=== PATIENT | male | born 1930 ===

== ENCOUNTER 2018-01-26 16:49 | Inpatient (IN) | payer MEDICARE ==
[2018-01-26] MEDS ORDERED: BISACODYL 10 MG SUPP PR (17:30)
[2018-01-26] MEDS ORDERED: PENDING SANTYL ORDER FOR WOUND CARE XX (17:30)
[2018-01-26] MEDS ORDERED: LACTULOSE 30ML CUP PO (17:30)
[2018-01-26] MEDS ORDERED: MAGNESIUM HYDROXIDE 30ML CUP PO (17:30)
[2018-01-26] MEDS ORDERED: METOCLOPRAMIDE 5 MG TAB PO (19:30)
[2018-01-26] MEDS ORDERED: ALBUTEROL HFA 8 GM INHALER INH (20:00)
[2018-01-26] MEDS: ALBUTEROL/IPRATROPIUM (NEB) 3 ML AMP HHN (20:47)
[2018-01-26] MEDS: DOCUSATE SODIUM 100 MG CAP PO (21:00)
[2018-01-26] MEDS: SENNA TAB PO (21:00)
[2018-01-26] MEDS: POLYETHYLENE GLYCOL 17 GM PACKET PO (21:00)
[2018-01-26] MEDS: ATORVASTATIN 10 MG TAB PO (21:53)
[2018-01-26] MEDS: BRIMONIDINE 0.2%-TIMOLOL 0.5% 5ML OPH BOTH EYES (21:53)
[2018-01-26] MEDS: HYDROCODONE/APAP (5/325) TAB PO (21:54)
[2018-01-26] MEDS: FEBUXOSTAT 40 MG TABLET PO (23:06)
[2018-01-26] MEDS: DOCOSANOL 2 GM CREAM TOP (23:08)
[2018-01-26 23:28] LABS: HEPATITIS B SURFACE ANTIGEN NEGATIVE (NEGATIVE)
[2018-01-26 23:30] LABS: ADD UMIC YES; UR ASCORBIC ACID NEGATIVE (NEGATIVE); UR BACTERIA FEW /HPF (NONE SEEN); UR BILIRUBIN (Dip) NEGATIVE (NEGATIVE); UR BLOOD (Dip) 1+ mg/dL (NEGATIVE); UR CLARITY CLEAR (CLEAR); UR COLOR YELLOW (YELLOW); UR GLUCOSE (Dip) 2+ mg/dL (NEGATIVE); UR KETONES (Dip) NEGATIVE (NEGATIVE); UR LEUKOCYTE ESTERASE (Dip) NEGATIVE Leu/ul (NEGATIVE); UR NITRITE (Dip) NEGATIVE (NEGATIVE); UR RBC 0 /HPF (0-5); UR SPECIFIC GRAVITY (Dip) 1.006 (1.003-1.030); UR TOTAL PROTEIN (Dip) 1+ mg/dl (NEGATIVE); UR UROBILINOGEN (Dip) NEGATIVE (NEGATIVE); UR WBC 0 /HPF (0-5)
[2018-01-27 01:48] LABS: HEPATITIS B SURFACE ANTIBODY INDETERMINATE (NEGATIVE)
[2018-01-27] MEDS: ALBUTEROL/IPRATROPIUM (NEB) 3 ML AMP HHN ×4 (01:48→20:00)
[2018-01-27] MEDS: PANTOPRAZOLE (EC) 40 MG TAB PO ×2 (05:45→17:31)
[2018-01-27] MEDS: LEVOTHYROXINE 112 MCG TAB PO (05:45)
[2018-01-27] MEDS ORDERED: LEVOTHYROXINE 125 MCG TAB PO (06:00)
[2018-01-27 06:39] LABS: ADD MAN DIFF? NO
[2018-01-27 06:56] LABS: WHITE BLOOD COUNT 7.4 10^3/ul (4.8-10.8)
[2018-01-27 06:56] LABS: BASOPHIL # 0.1 10^3/ul (0.0-0.1); BASOPHILS % 0.7 % (0.0-2.0); EOSINOPHILS # 0.1 10^3/ul (0.0-0.5); EOSINOPHILS % 1.8 % (0.0-7.0); HEMATOCRIT 33.1 % (42.0-52.0); HEMOGLOBIN 10.6 g/dl (14.0-18.0); LYMPHOCYTES # 1.6 10^3/ul (0.8-2.9); LYMPHOCYTES % 21.3 % (15.0-51.0); MEAN CORPUSCULAR HEMOGLOBIN 31.3 pg (29.0-33.0); MEAN CORPUSCULAR VOLUME 97.6 fl (82.0-101.0); MEAN PLATELET VOLUME 9.8 fl (7.4-10.4); MONOCYTES % 13.3 % (0.0-11.0); NEUTROPHIL # 4.6 10^3/ul (1.6-7.5); NEUTROPHILS % 61.8 % (39.0-77.0); PLATELET COUNT 354 10^3/UL (140-415); RED BLOOD COUNT 3.39 10^6/ul (4.70-6.10); RED CELL DISTRIBUTION WIDTH 15.7 % (11.5-14.5)
[2018-01-27 07:14] LABS: ALANINE AMINOTRANSFERASE 19 IU/L (13-69); ALBUMIN 3.5 g/dl (3.3-4.9); ALKALINE PHOSPHATASE 84 IU/L (42-121); ANION GAP 14 (5-13); ASPARTATE AMINO TRANSFERASE 46 IU/L (15-46); BILIRUBIN,INDIRECT 0.3 mg/dl (0-1.1); BILIRUBIN,TOTAL 0.3 mg/dl (0.2-1.3); BLOOD UREA NITROGEN 63 mg/dl (7-20); CALCIUM 9.9 mg/dl (8.4-10.2); CARBON DIOXIDE 26 mmol/L (21-31); CHLORIDE 91 mmol/L (97-110); CREATININE 6.26 mg/dl (0.61-1.24); GLUCOSE 210 mg/dl (70-220); SODIUM 131 mmol/L (135-144)
[2018-01-27 07:16] LABS: POTASSIUM 3.8 mmol/L (3.5-5.1)
[2018-01-27] MEDS ORDERED: GLUCOSE GEL 15 GRAM TUBE PO ×2 (08:30)
[2018-01-27] MEDS ORDERED: DEXTROSE 50% 50 ML SYRINGE IV ×2 (08:30)
[2018-01-27] MEDS ORDERED: GLUCAGON 1 MG INJ IM (08:30)
[2018-01-27] MEDS ORDERED: GLUCOSE GEL 15 GRAM TUBE BUCCAL (08:30)
[2018-01-27] MEDS: INSULIN ASPART [NOVOLOG] 3 ML PEN SC ×4 (08:30→21:37)
[2018-01-27] MEDS: CINACALCET 30 MG TAB PO (08:31)
[2018-01-27] MEDS: MIDODRINE 5 MG TAB PO ×3 (08:32→17:31)
[2018-01-27] MEDS: SUCRALFATE 1 GM TAB PO ×3 (08:32→17:31)
[2018-01-27] MEDS: HYDROCODONE/APAP (5/325) TAB PO ×3 (08:32→21:59)
[2018-01-27] MEDS: CHOLECALCIFEROL 2,000 UNIT CAP PO (08:32)
[2018-01-27] MEDS: FENOFIBRATE 145 MG TAB PO (08:32)
[2018-01-27] MEDS: MULTIVITAMINS/MINERALS TAB PO (08:32)
[2018-01-27] MEDS: DOCUSATE SODIUM 100 MG CAP PO ×2 (08:32→21:00)
[2018-01-27] MEDS: POLYETHYLENE GLYCOL 17 GM PACKET PO ×2 (08:33→21:00)
[2018-01-27] MEDS: BRIMONIDINE 0.2%-TIMOLOL 0.5% 5ML OPH BOTH EYES ×2 (08:33→21:32)
[2018-01-27] MEDS: CALCIUM ACETATE 667 MG CAP PO ×3 (08:33→17:32)
[2018-01-27] MEDS: FLUTICASONE/VILANTEROL 100-25 INH (08:33)
[2018-01-27] MEDS ORDERED: MULTIVIT/CA CARB/B CMPLX/FA TAB PO (09:00)
[2018-01-27] MEDS ORDERED: HEPARIN 5,000 UNIT/0.5 ML VIAL ×2 (09:17→20:39)
[2018-01-27] MEDS: HEPARIN 5,000 UNIT/1 ML VIAL SC ×2 (09:19→21:33)
[2018-01-27] MEDS: LIDOCAINE 5% PATCH TD (11:17)
[2018-01-27] MEDS: DOCOSANOL 2 GM CREAM TOP ×2 (11:17→21:38)
[2018-01-27] MEDS: EPOETIN 3000 UNITS/1 ML INJ (ESRD) SC (17:31)
[2018-01-27] MEDS: MONTELUKAST 10 MG TAB PO (17:31)
[2018-01-27] MEDS: SENNA TAB PO (21:00)
[2018-01-27] MEDS: ATORVASTATIN 10 MG TAB PO (21:31)
[2018-01-27] MEDS: FEBUXOSTAT 40 MG TABLET PO (21:31)
[2018-01-28] MEDS: ALBUTEROL/IPRATROPIUM (NEB) 3 ML AMP HHN ×4 (01:03→19:52)
[2018-01-28] MEDS: LEVOTHYROXINE 112 MCG TAB PO (06:36)
[2018-01-28] MEDS: PANTOPRAZOLE (EC) 40 MG TAB PO ×2 (06:36→17:17)
[2018-01-28 06:47] LABS: ADD MAN DIFF? NO
[2018-01-28 07:03] LABS: BASOPHIL # 0.1 10^3/ul (0.0-0.1); BASOPHILS % 0.8 % (0.0-2.0); EOSINOPHILS # 0.1 10^3/ul (0.0-0.5); EOSINOPHILS % 1.4 % (0.0-7.0); HEMATOCRIT 33.3 % (42.0-52.0); HEMOGLOBIN 10.8 g/dl (14.0-18.0); LYMPHOCYTES # 1.9 10^3/ul (0.8-2.9); LYMPHOCYTES % 26.1 % (15.0-51.0); MEAN CORPUSCULAR HEMOGLOBIN 31.2 pg (29.0-33.0); MEAN CORPUSCULAR HGB CONC 32.4 g/dl (32.0-37.0); MEAN CORPUSCULAR VOLUME 96.2 fl (82.0-101.0); MONOCYTES % 13.4 % (0.0-11.0); NEUTROPHIL # 4.2 10^3/ul (1.6-7.5); NEUTROPHILS % 57.3 % (39.0-77.0); PLATELET COUNT 381 10^3/UL (140-415); RED BLOOD COUNT 3.46 10^6/ul (4.70-6.10); RED CELL DISTRIBUTION WIDTH 15.5 % (11.5-14.5)
[2018-01-28 07:03] LABS: WHITE BLOOD COUNT 7.2 10^3/ul (4.8-10.8)
[2018-01-28 07:26] LABS: ANION GAP 14 (5-13); BLOOD UREA NITROGEN 59 mg/dl (7-20); CARBON DIOXIDE 27 mmol/L (21-31); CHLORIDE 92 mmol/L (97-110); CREATININE 6.31 mg/dl (0.61-1.24); GLUCOSE 178 mg/dl (70-220); MAGNESIUM 1.8 mg/dl (1.7-2.5); PHOSPHORUS 6.5 mg/dl (2.5-4.9); POTASSIUM 3.7 mmol/L (3.5-5.1); SODIUM 133 mmol/L (135-144)
[2018-01-28] MEDS: SUCRALFATE 1 GM TAB PO ×3 (07:53→17:17)
[2018-01-28] MEDS: CALCIUM ACETATE 667 MG CAP PO ×3 (07:53→17:18)
[2018-01-28] MEDS: INSULIN ASPART [NOVOLOG] 3 ML PEN SC ×4 (07:56→20:51)
[2018-01-28] MEDS: HYDROCODONE/APAP (5/325) TAB PO ×2 (07:57→17:18)
[2018-01-28] MEDS ORDERED: DEXTROSE 50% 50 ML SYRINGE IV ×2 (08:30)
[2018-01-28] MEDS ORDERED: GLUCOSE GEL 15 GRAM TUBE PO ×2 (08:30)
[2018-01-28] MEDS ORDERED: GLUCOSE GEL 15 GRAM TUBE BUCCAL (08:30)
[2018-01-28] MEDS ORDERED: GLUCAGON 1 MG INJ IM (08:30)
[2018-01-28] MEDS: POLYETHYLENE GLYCOL 17 GM PACKET PO ×3 (09:00→20:47)
[2018-01-28] MEDS ORDERED: HEPARIN 5,000 UNIT/0.5 ML VIAL ×2 (09:06→20:06)
[2018-01-28] MEDS: FLUTICASONE/VILANTEROL 100-25 INH (09:51)
[2018-01-28] MEDS: BRIMONIDINE 0.2%-TIMOLOL 0.5% 5ML OPH BOTH EYES ×2 (09:51→20:46)
[2018-01-28] MEDS: CINACALCET 30 MG TAB PO (09:51)
[2018-01-28] MEDS: CHOLECALCIFEROL 2,000 UNIT CAP PO (09:51)
[2018-01-28] MEDS: ASPIRIN (EC) 81 MG TAB PO (09:51)
[2018-01-28] MEDS: MULTIVITAMINS/MINERALS TAB PO (09:51)
[2018-01-28] MEDS: HEPARIN 5,000 UNIT/1 ML VIAL SC ×2 (09:52→20:50)
[2018-01-28] MEDS: DOCUSATE SODIUM 100 MG CAP PO ×2 (09:52→20:46)
[2018-01-28] MEDS: MIDODRINE 5 MG TAB PO ×3 (09:53→17:17)
[2018-01-28] MEDS: LIDOCAINE 5% PATCH TD (09:53)
[2018-01-28] MEDS: FENOFIBRATE 145 MG TAB PO (09:53)
[2018-01-28] MEDS: DOCOSANOL 2 GM CREAM TOP ×2 (10:00→20:46)
[2018-01-28] MEDS: LINAGLIPTIN 5 MG TABLET PO (10:00)
[2018-01-28] MEDS: ACCU-CHEK XX ×3 (11:46→21:01)
[2018-01-28] MEDS: MONTELUKAST 10 MG TAB PO (17:18)
[2018-01-28] MEDS: FEBUXOSTAT 40 MG TABLET PO (20:46)
[2018-01-28] MEDS: ATORVASTATIN 10 MG TAB PO (20:46)
[2018-01-28] MEDS: SENNA TAB PO (20:47)
[2018-01-29] MEDS: ALBUTEROL/IPRATROPIUM (NEB) 3 ML AMP HHN ×4 (01:21→19:47)
[2018-01-29] MEDS: LEVOTHYROXINE 112 MCG TAB PO (06:18)
[2018-01-29] MEDS: PANTOPRAZOLE (EC) 40 MG TAB PO ×2 (06:18→18:02)
[2018-01-29] MEDS: SUCRALFATE 1 GM TAB PO ×3 (07:30→17:41)
[2018-01-29] MEDS: ACCU-CHEK XX ×4 (07:30→20:37)
[2018-01-29] MEDS: INSULIN ASPART [NOVOLOG] 3 ML PEN SC ×4 (07:53→20:24)
[2018-01-29] MEDS ORDERED: HEPARIN 5,000 UNIT/0.5 ML VIAL ×2 (08:18→20:04)
[2018-01-29] MEDS: DOCUSATE SODIUM 100 MG CAP PO ×2 (08:50→20:36)
[2018-01-29] MEDS: HYDROCODONE/APAP (5/325) TAB PO ×2 (08:51→18:31)
[2018-01-29] MEDS: MULTIVITAMINS/MINERALS TAB PO (08:52)
[2018-01-29] MEDS: LINAGLIPTIN 5 MG TABLET PO (08:52)
[2018-01-29] MEDS: HEPARIN 5,000 UNIT/1 ML VIAL SC ×2 (08:54→20:23)
[2018-01-29] MEDS: LIDOCAINE 5% PATCH TD ×2 (08:59→09:18)
[2018-01-29] MEDS: FLUTICASONE/VILANTEROL 100-25 INH (09:14)
[2018-01-29] MEDS: DICLOFENAC SODIUM 1% GEL 100 GM TUBE TP (09:14)
[2018-01-29] MEDS: CINACALCET 30 MG TAB PO (09:16)
[2018-01-29] MEDS: MIDODRINE 5 MG TAB PO ×3 (09:17→17:00)
[2018-01-29] MEDS: FENOFIBRATE 145 MG TAB PO (09:17)
[2018-01-29] MEDS: CALCIUM ACETATE 667 MG CAP PO ×3 (09:20→17:39)
[2018-01-29] MEDS: CHOLECALCIFEROL 2,000 UNIT CAP PO (09:21)
[2018-01-29] MEDS: ASPIRIN (EC) 81 MG TAB PO (09:21)
[2018-01-29] MEDS: POLYETHYLENE GLYCOL 17 GM PACKET PO ×2 (09:22→20:37)
[2018-01-29] MEDS: BRIMONIDINE 0.2%-TIMOLOL 0.5% 5ML OPH BOTH EYES ×2 (09:32→20:26)
[2018-01-29] MEDS: DOCOSANOL 2 GM CREAM TOP ×2 (17:43→20:40)
[2018-01-29] MEDS: EPOETIN 3000 UNITS/1 ML INJ (ESRD) SC (17:45)
[2018-01-29] MEDS: MONTELUKAST 10 MG TAB PO (18:03)
[2018-01-29] MEDS: FEBUXOSTAT 40 MG TABLET PO (20:19)
[2018-01-29] MEDS: ATORVASTATIN 10 MG TAB PO (20:20)
[2018-01-29] MEDS: SENNA TAB PO (20:37)
[2018-01-29] MEDS: ACETAMINOPHEN 325 MG TAB PO (23:07)
[2018-01-30] MEDS: ALBUTEROL/IPRATROPIUM (NEB) 3 ML AMP HHN ×4 (02:00→20:00)
[2018-01-30] MEDS: PANTOPRAZOLE (EC) 40 MG TAB PO ×2 (06:37→17:32)
[2018-01-30] MEDS: LEVOTHYROXINE 112 MCG TAB PO (06:37)
[2018-01-30 07:17] LABS: ADD MAN DIFF? NO
[2018-01-30 07:21] LABS: BASOPHIL # 0.1 10^3/ul (0.0-0.1); BASOPHILS % 0.7 % (0.0-2.0); EOSINOPHILS # 0.1 10^3/ul (0.0-0.5); EOSINOPHILS % 1.1 % (0.0-7.0); HEMATOCRIT 34.4 % (42.0-52.0); LYMPHOCYTES # 1.8 10^3/ul (0.8-2.9); MEAN CORPUSCULAR HEMOGLOBIN 31.5 pg (29.0-33.0); MEAN CORPUSCULAR VOLUME 98.6 fl (82.0-101.0); MONOCYTE # 1.2 10^3/ul (0.3-0.9); MONOCYTES % 13.8 % (0.0-11.0); NEUTROPHIL # 5.1 10^3/ul (1.6-7.5); NEUTROPHILS % 61.2 % (39.0-77.0); PLATELET COUNT 434 10^3/UL (140-415); RED BLOOD COUNT 3.49 10^6/ul (4.70-6.10); RED CELL DISTRIBUTION WIDTH 15.4 % (11.5-14.5)
[2018-01-30 07:21] LABS: WHITE BLOOD COUNT 8.3 10^3/ul (4.8-10.8)
[2018-01-30] MEDS: ACCU-CHEK XX ×4 (07:53→20:41)
[2018-01-30] MEDS: SUCRALFATE 1 GM TAB PO ×3 (07:53→17:32)
[2018-01-30] MEDS: CALCIUM ACETATE 667 MG CAP PO ×3 (07:53→17:32)
[2018-01-30] MEDS: INSULIN ASPART [NOVOLOG] 3 ML PEN SC ×4 (07:56→20:38)
[2018-01-30] MEDS: INSULIN GLARGINE [LANTus] (100 UNITS/ML) SYG SC (07:57)
[2018-01-30] MEDS: LINAGLIPTIN 5 MG TABLET PO (07:58)
[2018-01-30 08:03] LABS: ANION GAP 16 (5-13); BLOOD UREA NITROGEN 61 mg/dl (7-20); CARBON DIOXIDE 28 mmol/L (21-31); CHLORIDE 93 mmol/L (97-110); CREATININE 6.41 mg/dl (0.61-1.24); GLUCOSE 232 mg/dl (70-220); PHOSPHORUS 6.4 mg/dl (2.5-4.9); POTASSIUM 3.4 mmol/L (3.5-5.1); SODIUM 137 mmol/L (135-144)
[2018-01-30] MEDS ORDERED: HEPARIN 5,000 UNIT/0.5 ML VIAL ×2 (08:20→20:30)
[2018-01-30] MEDS: CINACALCET 30 MG TAB PO (08:58)
[2018-01-30] MEDS: ASPIRIN (EC) 81 MG TAB PO (08:58)
[2018-01-30] MEDS: FENOFIBRATE 145 MG TAB PO (08:58)
[2018-01-30] MEDS: POLYETHYLENE GLYCOL 17 GM PACKET PO ×2 (08:58→20:41)
[2018-01-30] MEDS: FLUTICASONE/VILANTEROL 100-25 INH (08:58)
[2018-01-30] MEDS: BRIMONIDINE 0.2%-TIMOLOL 0.5% 5ML OPH BOTH EYES ×2 (08:58→20:40)
[2018-01-30] MEDS: DOCUSATE SODIUM 100 MG CAP PO ×2 (08:58→20:41)
[2018-01-30] MEDS: MULTIVITAMINS/MINERALS TAB PO (08:58)
[2018-01-30] MEDS: CHOLECALCIFEROL 2,000 UNIT CAP PO (08:58)
[2018-01-30] MEDS: DICLOFENAC SODIUM 1% GEL 100 GM TUBE TP (08:59)
[2018-01-30] MEDS: MIDODRINE 5 MG TAB PO ×3 (08:59→17:32)
[2018-01-30] MEDS: DOCOSANOL 2 GM CREAM TOP ×2 (08:59→20:40)
[2018-01-30] MEDS: HEPARIN 5,000 UNIT/1 ML VIAL SC ×2 (09:15→20:39)
[2018-01-30 10:45] LABS: FLD RBC 0 /uL; FLD WBC 2 /cmm
[2018-01-30 10:53] LABS: FLD TYPE PERITONEAL
[2018-01-30 10:53] LABS: FLD CLARITY CLEAR
[2018-01-30] MEDS: HYDROCODONE/APAP (5/325) TAB PO ×2 (11:19→18:24)
[2018-01-30] MEDS: LIDOCAINE 5% PATCH TD (13:05)
[2018-01-30] MEDS: MONTELUKAST 10 MG TAB PO (17:32)
[2018-01-30] MEDS: ATORVASTATIN 10 MG TAB PO (20:40)
[2018-01-30] MEDS: SENNA TAB PO (20:41)
[2018-01-30] MEDS: FEBUXOSTAT 40 MG TABLET PO (22:53)
[2018-01-31] MEDS: HYDROCODONE/APAP (5/325) TAB PO ×2 (00:23→12:05)
[2018-01-31] MEDS: ALBUTEROL/IPRATROPIUM (NEB) 3 ML AMP HHN ×4 (02:00→21:25)
[2018-01-31] MEDS: LEVOTHYROXINE 112 MCG TAB PO (06:37)
[2018-01-31] MEDS: PANTOPRAZOLE (EC) 40 MG TAB PO ×2 (06:38→17:29)
[2018-01-31] MEDS: INSULIN ASPART [NOVOLOG] 3 ML PEN SC ×4 (07:35→20:30)
[2018-01-31] MEDS: ACCU-CHEK XX ×4 (07:47→21:00)
[2018-01-31] MEDS: LINAGLIPTIN 5 MG TABLET PO (07:49)
[2018-01-31] MEDS: SUCRALFATE 1 GM TAB PO ×3 (07:49→17:29)
[2018-01-31] MEDS: CALCIUM ACETATE 667 MG CAP PO ×3 (07:49→17:29)
[2018-01-31] MEDS: INSULIN GLARGINE [LANTus] (100 UNITS/ML) SYG SC (07:53)
[2018-01-31] MEDS ORDERED: HEPARIN 5,000 UNIT/0.5 ML VIAL ×2 (08:46→19:37)
[2018-01-31] MEDS: FLUTICASONE/VILANTEROL 100-25 INH (08:59)
[2018-01-31] MEDS: DOCOSANOL 2 GM CREAM TOP ×2 (09:00→23:06)
[2018-01-31] MEDS: BRIMONIDINE 0.2%-TIMOLOL 0.5% 5ML OPH BOTH EYES ×2 (09:00→20:34)
[2018-01-31] MEDS: MIDODRINE 5 MG TAB PO ×3 (09:00→17:29)
[2018-01-31] MEDS: FENOFIBRATE 145 MG TAB PO (09:01)
[2018-01-31] MEDS: MULTIVITAMINS/MINERALS TAB PO (09:01)
[2018-01-31] MEDS: LIDOCAINE 5% PATCH TD (09:01)
[2018-01-31] MEDS: CINACALCET 30 MG TAB PO (09:01)
[2018-01-31] MEDS: DOCUSATE SODIUM 100 MG CAP PO ×2 (09:01→21:00)
[2018-01-31] MEDS: CHOLECALCIFEROL 2,000 UNIT CAP PO (09:01)
[2018-01-31] MEDS: POLYETHYLENE GLYCOL 17 GM PACKET PO ×2 (09:01→21:00)
[2018-01-31] MEDS: ASPIRIN (EC) 81 MG TAB PO (09:01)
[2018-01-31] MEDS: HEPARIN 5,000 UNIT/1 ML VIAL SC ×2 (09:05→20:32)
[2018-01-31] MEDS: MONTELUKAST 10 MG TAB PO (17:29)
[2018-01-31] MEDS: ATORVASTATIN 10 MG TAB PO (20:26)
[2018-01-31] MEDS: SENNA TAB PO (21:00)
[2018-01-31] MEDS: FEBUXOSTAT 40 MG TABLET PO (22:29)
[2018-02-01] MEDS: ALBUTEROL/IPRATROPIUM (NEB) 3 ML AMP HHN ×4 (02:00→20:00)
[2018-02-01] MEDS: LEVOTHYROXINE 112 MCG TAB PO (06:16)
[2018-02-01] MEDS: PANTOPRAZOLE (EC) 40 MG TAB PO ×2 (06:16→17:37)
[2018-02-01] MEDS: ACCU-CHEK XX ×4 (07:05→21:03)
[2018-02-01] MEDS: SUCRALFATE 1 GM TAB PO ×3 (08:14→17:37)
[2018-02-01] MEDS: LINAGLIPTIN 5 MG TABLET PO (08:14)
[2018-02-01] MEDS: CALCIUM ACETATE 667 MG CAP PO ×3 (08:15→17:37)
[2018-02-01] MEDS: INSULIN ASPART [NOVOLOG] 3 ML PEN SC ×4 (08:16→21:03)
[2018-02-01] MEDS ORDERED: HEPARIN 5,000 UNIT/0.5 ML VIAL (08:50)
[2018-02-01] MEDS: MULTIVITAMINS/MINERALS TAB PO (09:17)
[2018-02-01] MEDS: FENOFIBRATE 145 MG TAB PO (09:17)
[2018-02-01] MEDS: ASPIRIN (EC) 81 MG TAB PO (09:17)
[2018-02-01] MEDS: DOCUSATE SODIUM 100 MG CAP PO ×2 (09:17→20:53)
[2018-02-01] MEDS: CINACALCET 30 MG TAB PO (09:18)
[2018-02-01] MEDS: MIDODRINE 5 MG TAB PO ×3 (09:18→17:38)
[2018-02-01] MEDS: CHOLECALCIFEROL 2,000 UNIT CAP PO (09:18)
[2018-02-01] MEDS: BRIMONIDINE 0.2%-TIMOLOL 0.5% 5ML OPH BOTH EYES ×2 (09:18→20:53)
[2018-02-01] MEDS: LIDOCAINE 5% PATCH TD (09:18)
[2018-02-01] MEDS: POLYETHYLENE GLYCOL 17 GM PACKET PO ×2 (09:19→20:59)
[2018-02-01] MEDS: FLUTICASONE/VILANTEROL 100-25 INH (09:19)
[2018-02-01] MEDS: HEPARIN 5,000 UNIT/1 ML VIAL SC ×2 (09:20→20:54)
[2018-02-01] MEDS: DICLOFENAC SODIUM 1% GEL 100 GM TUBE TP (09:20)
[2018-02-01] MEDS: INSULIN GLARGINE [LANTus] (100 UNITS/ML) SYG SC (09:36)
[2018-02-01] MEDS ORDERED: VITAMIN A & D 5 GM OINT PACKET TOP (13:28)
[2018-02-01] MEDS: MONTELUKAST 10 MG TAB PO (17:37)
[2018-02-01] MEDS: SENNA TAB PO (20:53)
[2018-02-01] MEDS: ATORVASTATIN 10 MG TAB PO (20:53)
[2018-02-01] MEDS: FEBUXOSTAT 40 MG TABLET PO (20:53)
[2018-02-02] MEDS: HYDROCODONE/APAP (5/325) TAB PO
[2018-02-02] MEDS: ALBUTEROL/IPRATROPIUM (NEB) 3 ML AMP HHN ×4 (02:00→19:50)
[2018-02-02] MEDS: LEVOTHYROXINE 112 MCG TAB PO (06:48)
[2018-02-02] MEDS: PANTOPRAZOLE (EC) 40 MG TAB PO ×2 (06:48→17:38)
[2018-02-02] MEDS: INSULIN ASPART [NOVOLOG] 3 ML PEN SC ×4 (07:45→20:33)
[2018-02-02] MEDS: INSULIN GLARGINE [LANTus] (100 UNITS/ML) SYG SC (07:46)
[2018-02-02] MEDS: LINAGLIPTIN 5 MG TABLET PO (07:47)
[2018-02-02] MEDS: ACCU-CHEK XX ×4 (07:48→20:33)
[2018-02-02] MEDS: DOCUSATE SODIUM 100 MG CAP PO ×2 (08:29→20:24)
[2018-02-02] MEDS: CINACALCET 30 MG TAB PO (08:29)
[2018-02-02] MEDS: FENOFIBRATE 145 MG TAB PO (08:29)
[2018-02-02] MEDS: FLUTICASONE/VILANTEROL 100-25 INH (08:30)
[2018-02-02] MEDS: CALCIUM ACETATE 667 MG CAP PO ×3 (08:30→17:38)
[2018-02-02] MEDS: BRIMONIDINE 0.2%-TIMOLOL 0.5% 5ML OPH BOTH EYES ×2 (08:30→21:00)
[2018-02-02] MEDS: ASPIRIN (EC) 81 MG TAB PO (08:30)
[2018-02-02] MEDS: MULTIVITAMINS/MINERALS TAB PO (08:30)
[2018-02-02] MEDS: POLYETHYLENE GLYCOL 17 GM PACKET PO ×2 (08:30→20:24)
[2018-02-02] MEDS: CHOLECALCIFEROL 2,000 UNIT CAP PO (08:30)
[2018-02-02] MEDS: LIDOCAINE 5% PATCH TD (08:31)
[2018-02-02] MEDS: HEPARIN 5,000 UNIT/1 ML VIAL SC ×2 (08:37→20:32)
[2018-02-02] MEDS: SUCRALFATE 1 GM TAB PO ×3 (08:41→17:38)
[2018-02-02] MEDS: MIDODRINE 5 MG TAB PO ×3 (08:42→17:00)
[2018-02-02] MEDS: DICLOFENAC SODIUM 1% GEL 100 GM TUBE TP ×2 (14:00→17:40)
[2018-02-02] MEDS: MONTELUKAST 10 MG TAB PO (17:39)
[2018-02-02] MEDS: SENNA TAB PO (20:24)
[2018-02-02] MEDS: ATORVASTATIN 10 MG TAB PO (20:24)
[2018-02-02] MEDS: FEBUXOSTAT 40 MG TABLET PO (20:24)
[2018-02-03] MEDS: HYDROCODONE/APAP (5/325) TAB PO ×2 (01:14→23:13)
[2018-02-03] MEDS: ALBUTEROL/IPRATROPIUM (NEB) 3 ML AMP HHN ×3 (02:00→19:48)
[2018-02-03] MEDS: LEVOTHYROXINE 112 MCG TAB PO (06:45)
[2018-02-03] MEDS: PANTOPRAZOLE (EC) 40 MG TAB PO ×2 (06:45→17:31)
[2018-02-03] MEDS: ACCU-CHEK XX ×4 (07:52→21:00)
[2018-02-03] MEDS: CALCIUM ACETATE 667 MG CAP PO ×3 (07:53→17:31)
[2018-02-03] MEDS: LINAGLIPTIN 5 MG TABLET PO (07:53)
[2018-02-03] MEDS: SUCRALFATE 1 GM TAB PO ×3 (07:53→17:31)
[2018-02-03] MEDS: INSULIN ASPART [NOVOLOG] 3 ML PEN SC ×4 (07:55→21:00)
[2018-02-03] MEDS: INSULIN GLARGINE [LANTus] (100 UNITS/ML) SYG SC ×2 (08:00→12:10)
[2018-02-03] MEDS ORDERED: INSULIN GLARGINE [LANTus] (100 UNITS/ML) SYG SC (08:00)
[2018-02-03] MEDS: FLUTICASONE/VILANTEROL 100-25 INH (09:32)
[2018-02-03] MEDS: MULTIVITAMINS/MINERALS TAB PO (09:32)
[2018-02-03] MEDS: LIDOCAINE 5% PATCH TD (09:32)
[2018-02-03] MEDS: POLYETHYLENE GLYCOL 17 GM PACKET PO ×2 (09:32→20:46)
[2018-02-03] MEDS: BRIMONIDINE 0.2%-TIMOLOL 0.5% 5ML OPH BOTH EYES ×2 (09:32→20:46)
[2018-02-03] MEDS: MIDODRINE 5 MG TAB PO ×3 (09:33→16:45)
[2018-02-03] MEDS: CINACALCET 30 MG TAB PO (09:33)
[2018-02-03] MEDS: FENOFIBRATE 145 MG TAB PO (09:33)
[2018-02-03] MEDS: ASPIRIN (EC) 81 MG TAB PO (09:33)
[2018-02-03] MEDS: CHOLECALCIFEROL 2,000 UNIT CAP PO (09:33)
[2018-02-03] MEDS: DOCUSATE SODIUM 100 MG CAP PO ×2 (09:33→20:45)
[2018-02-03] MEDS: HEPARIN 5,000 UNIT/1 ML VIAL SC ×2 (09:34→20:58)
[2018-02-03] MEDS: MONTELUKAST 10 MG TAB PO (17:31)
[2018-02-03] MEDS: ATORVASTATIN 10 MG TAB PO (20:45)
[2018-02-03] MEDS: SENNA TAB PO (20:45)
[2018-02-03] MEDS: FEBUXOSTAT 40 MG TABLET PO (20:45)
[2018-02-04] MEDS: ALBUTEROL/IPRATROPIUM (NEB) 3 ML AMP HHN ×4 (02:00→20:00)
[2018-02-04] MEDS: PANTOPRAZOLE (EC) 40 MG TAB PO ×2 (06:38→17:06)
[2018-02-04] MEDS: LEVOTHYROXINE 112 MCG TAB PO (06:38)
[2018-02-04] MEDS: ACCU-CHEK XX ×4 (07:05→21:09)
[2018-02-04 07:51] LABS: ADD MAN DIFF? NO
[2018-02-04] MEDS: INSULIN GLARGINE [LANTus] (100 UNITS/ML) SYG SC (07:52)
[2018-02-04] MEDS: INSULIN ASPART [NOVOLOG] 3 ML PEN SC ×4 (07:53→20:21)
[2018-02-04] MEDS: CALCIUM ACETATE 667 MG CAP PO ×3 (07:53→17:06)
[2018-02-04 07:54] LABS: BASOPHIL # 0.1 10^3/ul (0.0-0.1); BASOPHILS % 0.9 % (0.0-2.0); EOSINOPHILS # 0.1 10^3/ul (0.0-0.5); EOSINOPHILS % 1.5 % (0.0-7.0); HEMATOCRIT 34.3 % (42.0-52.0); HEMOGLOBIN 11.1 g/dl (14.0-18.0); LYMPHOCYTES # 2.7 10^3/ul (0.8-2.9); LYMPHOCYTES % 33.2 % (15.0-51.0); MEAN CORPUSCULAR HEMOGLOBIN 31.4 pg (29.0-33.0); MEAN CORPUSCULAR HGB CONC 32.4 g/dl (32.0-37.0); MEAN CORPUSCULAR VOLUME 96.9 fl (82.0-101.0); MEAN PLATELET VOLUME 9.6 fl (7.4-10.4); MONOCYTES % 12.8 % (0.0-11.0); NEUTROPHIL # 3.9 10^3/ul (1.6-7.5); PLATELET COUNT 430 10^3/UL (140-415); RED BLOOD COUNT 3.54 10^6/ul (4.70-6.10); RED CELL DISTRIBUTION WIDTH 16.1 % (11.5-14.5)
[2018-02-04] MEDS: SUCRALFATE 1 GM TAB PO ×3 (07:54→17:06)
[2018-02-04] MEDS: LINAGLIPTIN 5 MG TABLET PO (07:54)
[2018-02-04 08:23] LABS: ANION GAP 14 (5-13); BLOOD UREA NITROGEN 61 mg/dl (7-20); CALCIUM 10.4 mg/dl (8.4-10.2); CARBON DIOXIDE 30 mmol/L (21-31); CHLORIDE 94 mmol/L (97-110); CREATININE 6.09 mg/dl (0.61-1.24); GLUCOSE 165 mg/dl (70-220); MAGNESIUM 2.2 mg/dl (1.7-2.5); PHOSPHORUS 5.3 mg/dl (2.5-4.9); POTASSIUM 3.9 mmol/L (3.5-5.1); SODIUM 138 mmol/L (135-144)
[2018-02-04] MEDS: FLUTICASONE/VILANTEROL 100-25 INH (08:35)
[2018-02-04] MEDS: BRIMONIDINE 0.2%-TIMOLOL 0.5% 5ML OPH BOTH EYES ×2 (08:35→20:22)
[2018-02-04] MEDS: LIDOCAINE 5% PATCH TD (08:35)
[2018-02-04] MEDS: ASPIRIN (EC) 81 MG TAB PO (08:35)
[2018-02-04] MEDS: MULTIVITAMINS/MINERALS TAB PO (08:35)
[2018-02-04] MEDS: DOCUSATE SODIUM 100 MG CAP PO ×2 (08:35→20:22)
[2018-02-04] MEDS: CINACALCET 30 MG TAB PO (08:35)
[2018-02-04] MEDS: CHOLECALCIFEROL 2,000 UNIT CAP PO (08:36)
[2018-02-04] MEDS: HEPARIN 5,000 UNIT/1 ML VIAL SC ×2 (08:36→20:58)
[2018-02-04] MEDS: FENOFIBRATE 145 MG TAB PO (08:36)
[2018-02-04] MEDS: MIDODRINE 5 MG TAB PO ×3 (08:36→17:06)
[2018-02-04] MEDS: POLYETHYLENE GLYCOL 17 GM PACKET PO ×2 (08:37→20:25)
[2018-02-04] MEDS: MONTELUKAST 10 MG TAB PO (17:06)
[2018-02-04] MEDS: SENNA TAB PO (20:22)
[2018-02-04] MEDS: ATORVASTATIN 10 MG TAB PO (20:22)
[2018-02-04] MEDS: FEBUXOSTAT 40 MG TABLET PO (20:22)
[2018-02-04] MEDS: HYDROCODONE/APAP (5/325) TAB PO (22:59)
[2018-02-05] MEDS: ALBUTEROL/IPRATROPIUM (NEB) 3 ML AMP HHN ×2 (02:00→08:00)
[2018-02-05] MEDS: PANTOPRAZOLE (EC) 40 MG TAB PO (06:18)
[2018-02-05] MEDS: LEVOTHYROXINE 112 MCG TAB PO (06:18)
[2018-02-05] MEDS: ACCU-CHEK XX (07:05)
[2018-02-05] MEDS: INSULIN ASPART [NOVOLOG] 3 ML PEN SC (08:00)
[2018-02-05] MEDS: LINAGLIPTIN 5 MG TABLET PO (08:01)
[2018-02-05] MEDS: INSULIN GLARGINE [LANTus] (100 UNITS/ML) SYG SC (08:01)
[2018-02-05] MEDS: CALCIUM ACETATE 667 MG CAP PO (08:01)
[2018-02-05] MEDS: SUCRALFATE 1 GM TAB PO (08:01)
[2018-02-05] MEDS: HYDROCODONE/APAP (5/325) TAB PO (08:47)
[2018-02-05] MEDS: FLUTICASONE/VILANTEROL 100-25 INH (08:47)
[2018-02-05] MEDS: CINACALCET 30 MG TAB PO (08:47)
[2018-02-05] MEDS: MULTIVITAMINS/MINERALS TAB PO (08:47)
[2018-02-05] MEDS: BRIMONIDINE 0.2%-TIMOLOL 0.5% 5ML OPH BOTH EYES (08:47)
[2018-02-05] MEDS: POLYETHYLENE GLYCOL 17 GM PACKET PO (08:47)
[2018-02-05] MEDS: CHOLECALCIFEROL 2,000 UNIT CAP PO (08:47)
[2018-02-05] MEDS: FENOFIBRATE 145 MG TAB PO (08:47)
[2018-02-05] MEDS: ASPIRIN (EC) 81 MG TAB PO (08:47)
[2018-02-05] MEDS: HEPARIN 5,000 UNIT/1 ML VIAL SC (08:48)
[2018-02-05] MEDS: LIDOCAINE 5% PATCH TD (08:48)
[2018-02-05] MEDS: DOCUSATE SODIUM 100 MG CAP PO (08:50)
[2018-02-05] MEDS: MIDODRINE 5 MG TAB PO (09:13)
== END 2018-02-05 11:00 | disposition home health service (06) | DRG 947 ==
LOC: VRC 01-28 14:02
PROVIDERS: Physical Medicine & Rehabilitation
PROC: 3E1M39Z Irrigation of Peritoneal Cavity using Dialysate, Percutaneous Approach (ICD-10-PCS; principal; 2018-01-26)
DX: R53.81 Other malaise (principal); G92 Toxic encephalopathy; N18.6 End stage renal disease; J96.20 Acute and chronic respiratory failure, unspecified whether with hypoxia or hypercapnia; M48.54XA Collapsed vertebra, not elsewhere classified, thoracic region, initial encounter for fracture; I42.9 Cardiomyopathy, unspecified; R65.10 Systemic inflammatory response syndrome (SIRS) of non-infectious origin without acute organ dysfunction; E03.9 Hypothyroidism, unspecified; Z95.1 Presence of aortocoronary bypass graft; Z95.0 Presence of cardiac pacemaker; Z99.2 Dependence on renal dialysis; E21.3 Hyperparathyroidism, unspecified; E11.40 Type 2 diabetes mellitus with diabetic neuropathy, unspecified; M10.9 Gout, unspecified; I25.10 Atherosclerotic heart disease of native coronary artery without angina pectoris; K20.9 Esophagitis, unspecified; K29.70 Gastritis, unspecified, without bleeding; F06.31 Mood disorder due to known physiological condition with depressive features
CPT/HCPCS: 72072; 80048; 80053; 81001; 82962; 83735; 84100; 85025; 86706; 87070; 87081; 87086; 87102; 87116; 87340; 89051; 90945; 94640; 94664; 97110; 97112; 97116; 97163; 97167; 97530; 97535; 97542